=== PATIENT | male | born 1965 | race Caucasian/White ===

== ENCOUNTER 2020-08-17 14:34 | Outpatient (CLI) | payer BC, SELFPAY ==
--- NOTE | 2020-08-17 14:46 | XRR_ITS ---
PROCEDURE INFORMATION: Exam: XR Pelvis Exam date and time: 08/17/2020 3:05 PM Age: 55 years old Clinical indication: Injury or trauma; Fall; Blunt trauma (contusions or hematomas); Does not apply; Pelvic region; Injury date: Today; Injury details: Fell off 4 foot ladder; Additional info: Fall, pain TECHNIQUE: Imaging protocol: XR pelvis. Views: 1 or 2 view. COMPARISON: No relevant prior studies available. FINDINGS: Bones/joints: Unremarkable. No acute fracture. Soft tissues: Unremarkable. XR/XR pelvis 1-2V* [id number] IMPRESSION: No acute findings.
--- NOTE | 2020-08-17 14:46 | XRR_ITS ---
PROCEDURE INFORMATION: Exam: XR Lumbosacral Spine, 2 or 3 Views Exam date and time: 08/17/2020 3:03 PM Age: 55 years old Clinical indication: Injury or trauma; Fall; Blunt trauma (contusions or hematomas); Injury date: Today; Injury details: Fell off 4 foot ladder; Additional info: Fall, back abd hip pain TECHNIQUE: Imaging protocol: XR of the lumbosacral spine, 2 or 3 views. COMPARISON: CR XR pelvis 1-2V* [id number] 08/17/2020 2:51 PM FINDINGS: Bones/joints: There is mild spondylolisthesis L5-S1. Otherwise no additional acute fracture. There is retrolisthesis L4-L5. Soft tissues: Unremarkable. XR/XR lumbar spine 2-3V* [id number] IMPRESSION: 1. Mild spondylolisthesis L5-S1. 2. Retrolisthesis L4-L5. 3. Otherwise negative examination
== END 2020-08-17 14:35 | disposition home or self-care (01) ==
PROVIDERS: PCP Family Medicine; Visit Provider Emergency Medicine
DX: M54.9 Dorsalgia, unspecified (principal); W10.8XXA Fall (on) (from) other stairs and steps, initial encounter; R10.9 Unspecified abdominal pain; M25.559 Pain in unspecified hip; M43.17 Spondylolisthesis, lumbosacral region
CPT/HCPCS: 72100; 72170

== ENCOUNTER 2021-01-14 11:32 | Emergency (ER) | payer BC, SELFPAY ==
[2021-01-14 11:42] VITALS: BP 124/73; PULSE 76; RESP 15; O2SAT 97; BMI 28.9
[2021-01-14 14:03] VITALS: BP 140/102; PULSE 69; O2SAT 99
--- NOTE | 2021-01-14 14:07 | PC.NURSE ---
pt opted to take cat for rabies testing before deciding on rabies vaccination series.
--- NOTE | 2021-01-14 14:08 | ED_ITS ---
HPI - Animal Bite General: Chief Complaint: Animal Bite Stated Complaint: CAT BITE ON LEFT HAND AND WRIST Time Seen by Provider: 01/14/21 13:58 History of Present Illness: HPI narrative: Patient complains about redness swelling and pain to his left wrist that occurred a day and a half ago from a cat bite. Patient said is got red pretty fast. Patient said is a feral cat but he is able to catch it and it we will send it off to the vet in the morning. complaint: animal bite Onset (ago): day(s) Animal: cat Description of animal: household pet (Is a cat that they feet outside but is while) and appeared well Mechanism: bite Location - Extremities: Left: forearm Pain description: sharp Severity scale (1-10): 3 Context: unprovoked Associated symptoms: Reports wound drainage; Deny chills, fever(s) or headache(s) Review of Systems Const: Denies: fever(s), chills or body aches Eyes: Denies: change in vision or blurry vision ENMT: Denies: throat pain or nasal congestion Card: Denies: chest pain or dyspnea on exertion Resp: Denies: dyspnea, productive cough or non-productive cough GI: Denies: abdominal pain, nausea or vomiting : Denies: difficulty urinating Musc: Denies: extremity pain Skin/Breast: Reports: erythema, skin pain, skin tenderness and skin swelling; Denies: rash Neuro: Denies: headache(s) Psych: Denies: anxiety or depression Ajith/Lymph: Denies: easy bruising PFS ED PFSH: Social History (Updated 08/17/20 @ 13:56 by Vinay Daniels LPN) Smoking and tobacco status: current every day smoker smokeless tobacco Alcohol intake: never Physical Exam Const: COMMON NORMALS: no acute distress, average body habitus and patient oriented x3 HENMT: COMMON NORMALS: normocephalic HEAD & SCALP: normal to inspection and normocephalic FACE & SINUS: normal facial exam Eye: COMMON NORMALS: conjunctivae normal GENERAL EYE: appearance normal, both eyes and all related structures CONJUNCTIVA: Yes conjunctivae normal Neck/C-Spine: COMMON NORMALS: no JVD Chest: COMMONS NORMALS: normal inspection of the chest Resp: COMMON NORMALS: normal respiratory effort and clear to auscultation freda aterally AUSCULTATION: clear to auscultation bilaterally Cardio: COMMON NORMALS: no JVD, regular rate and regular rhythm RATE: regular rate RHYTHM: regular rhythm GI: COMMON NORMALS: Normal to inspection, nondistended, normoactive bowel sounds present Extremity: COMMON NORMALS: normal to inspection and full ROM Neuro: COMMON NORMALS: patient oriented x3 Skin: OTHER: Left wrist area with redness in the palm and then proximal about 4 inches down the forearm. No drainage noted at this point time bite antony noted on the dorsal and underside surface. Course Vital Signs: Vital signs: Vital Signs Pulse Rate 69 01/14/21 14:03 Respiratory Rate 15 01/14/21 11:42 Blood Pressure 140/102 01/14/21 14:03 Pulse Oximetry 99 01/14/21 14:03 MDM - Animal Bite MDM Narrative: Medical decision making narrative: Patient states he will be able to get a hold of the cat and take it to the vet to get set off state lab tomorrow the cat is still alive and comes to his house daily to get fed. Has not shown any signs of rabies. Discharge Plan Discharge Patient Disposition: Home Clinical Impression: Cat bite Qualifiers: Encounter type: initial encounter Qualified Code(s): W55.01XA - Bitten by cat, initial encounter Cellulitis Qualifiers: Site of cellulitis: extremity Site of cellulitis of extremity: upper extremity Laterality: left Qualified Code(s): L03.114 - Cellulitis of left upper limb Condition: Stable Prescriptions: New Augmentin 875-125 mg tablet 1 tab PO BID Qty: 20 RF: 0 No Action duloxetine [Cymbalta] 60 mg capsule,delayed release(DR/EC) 60 mg PO DAILY RF: 0 lisinopril 5 mg tablet 5 mg PO DAILY RF: 0 atorvastatin 10 mg tablet 10 mg PO DAILY RF: 0 metoprolol succinate 50 mg tablet extended release 24 hr 50 mg PO DAILY RF: 0 levothyroxine [Levo-T] 50 mcg tablet 50 mcg PO DAILY RF: 0 methocarbamol [Robaxin-750] 750 mg tablet 750 mg PO TID 6 Days Qty: 18 RF: 0 Discharge Orders: Discharge ED (Routine); Ordered 01/14/21 Ordered By: Rodríguez Tong Referrals: Christopher Ritter MD [Primary Care Provider] - Discharge Diet: Usual diet Discharge Activity: Resume usual activity Patient Instructions: Animal Bite (ED), Cellulitis (ED) Activity Restrictions/Additional Instructions: Follow-up with medical provider as directed. Take medications as prescribed. Return to the ER or your medical provider if condition worsens. Please read and understand discharge instructions. If any questions ask please. Catch the cat tonight take it to the vet tomorrow sling sent out for state lab for testing. Coding Level of Care Code ED Cord Cutter for Cammie Fwd Exam Comprehensive
[2021-01-14] MEDS: tetanus-dipt-pertussis 0.5 mL SDV IM (14:13)
[2021-01-14] MEDS: amoxicillin-clav 875-125 mg Tablet 1 TAB PO (14:13)
== END 2021-01-14 14:18 | disposition home or self-care (01) ==
PROVIDERS: Emergency Provider Nurse Practitioner Family; PCP Family Medicine
DX: S61.552A Open bite of left wrist, initial encounter (principal); L03.114 Cellulitis of left upper limb; W55.01XA Bitten by cat, initial encounter; F17.210 Nicotine dependence, cigarettes, uncomplicated; Z23 Encounter for immunization
CPT/HCPCS: 90471; 90715; 99283

== ENCOUNTER 2023-12-01 07:13 | Emergency (ER) | payer OTHER, SELFPAY ==
[2023-12-01 07:22] VITALS: BP 157/89; PULSE 64; RESP 18; TEMP 36.8; O2SAT 97; BMI 29.5
[2023-12-01 07:25] VITALS: BP 157/89; RESP 18; O2SAT 97
--- NOTE | 2023-12-01 07:26 | W.ED.HEATRA ---
HPI - Head Injury General: Chief complaint: Head Injury Stated complaint: hit head Time Seen by Provider: 12/01/23 07:20 History of Present Illness: 58-year-old male patient comes in today for complaints of head injury. Patient was working yesterday evening using a bar to break loose jackhammer from the concrete when it slipped striking him in the forehead. Patient denies loss of consciousness, persistent nausea vomiting, or persistent headache. 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 Patient reports mild headache. Patient appears nontoxic. Review of Systems General: Reports: 10 or more systems reviewed and unremarkable except in HPI and below Neuro: Reports: headache(s) PFSH ED PFSH: Social History Smoking and tobacco/nicotine status: current every day tobacco/nicotine user (chew) smokeless tobacco Alcohol intake: never Substance/Drug Use: never Physical Exam Const: COMMON NORMALS: alert HENMT: COMMON NORMALS: normocephalic HEAD & SCALP: normocephalic FACE & SINUS: ecchymosis (Left forehead) Neck/C-Spine: COMMON NORMALS: full ROM CERVICAL SPINE: No Cervical spine tenderness Chest: COMMONS NORMALS: normal inspection of the chest Resp: COMMON NORMALS: normal respiratory effort Cardio: COMMON NORMALS: regular rate RATE: regular rate Back/Pelvis: COMMON NORMALS: thoracic and lumbar spine normal to inspection Extremity: COMMON NORMALS: full ROM Neuro: SENSORIUM/ORIENTATION: Yes alert Psych: COMMON NORMALS: cooperative Skin: COMMON NORMALS: turgor normal GENERAL SKIN EXAM: turgor normal Course Vital Signs: Vital signs: Vital Signs Temperature 98.2 F 12/01/23 07:22 Pulse Rate 64 12/01/23 07:22 Respiratory Rate 18 12/01/23 07:25 Blood Pressure 157/89 12/01/23 07:25 Pulse Oximetry 97 12/01/23 07:25 Oxygen Delivery Me thod Room Air 12/01/23 07:25 MDM - Head Injury Medcial Decision Making Patient was referred from his employer for evaluation of head injury from yesterday. On exam patient appears nontoxic. Patient does have a contusion to the left forehead. Pupils are equal and reactive. Patient was all extremities well. No tenderness is noted in the cervical spine. Vital signs are normal except for some elevated blood pressure. Differential diagnosis includes skull fracture, intracranial bleeding, contusion. CT of the head noted no intracranial bleeding or skull fracture. Reviewed exam with patient with recommendations for treatment and follow-up. Patient reported understanding agreed to plan. Lab Data Radiology Impressions Head CT 12/01/23 07:29 IMPRESSION: 1. No acute intracranial pathology detected. 2. There is left frontal scalp soft tissue swelling/contusion. All radiology interpretation(s) finalized by discharge Discharge Plan Discharge Patient Disposition: Home Clinical Impression: Contusion of forehead Qualifiers: Encounter type: initial encounter Qualified Code(s): S00.83XA - Contusion of other part of head, initial encounter Condition: Stable Prescriptions: No Action levothyroxine [Synthroid] 50 mcg tablet 50 mcg PO QAM multivitamin Tablet 1 tab PO DAILY Fish Oil Concentrate 1,000 mg Capsule 1,000 mg PO DAILY garlic 500 mg Capsule 500 mg PO DAILY Vitamin C 500 mg Tablet 500 mg PO DAILY losartan 25 mg tablet 25 mg PO BID rosuvastatin 10 mg tablet 10 mg PO QAM duloxetine 30 mg capsule,delayed release(DR/EC) 30 mg PO QAM Prevagen 2 tab PO BID Discharge Orders: Discharge ED (Routine); Ordered 12/01/23 Ordered By: Charanjit Parker Referrals: Christopher Ritter MD [Primary Care Provider] - Discharge Diet: Usual diet Discharge Activity: Increase activity as tolerated Patient Instructions: Head Injury (ED) Activity Restrictions/Additional Instructions: Activity as tolerated. Use acetaminophen as needed for pain. Follow-up with primary care for further instructions. Return to ED for new concerns. Stand Alone Forms: Work/School Release Coding Level of Care Code ED [employer] Salesperson for Cammie Nicholson
--- NOTE | 2023-12-01 07:29 | CTR_ITS ---
PROCEDURE INFORMATION: Exam: CT Head Without Contrast Exam date and time: 12/01/2023 7:52 AM Age: 58 years old Clinical indication: Injury or trauma; Other: Hit on left eye brow with metal bar; Blunt trauma (contusions or hematomas); Additional info: Head injury TECHNIQUE: Imaging protocol: Computed tomography of the head without contrast. Total images: 1 Radiation optimization: All CT scans at this facility use at least one of these dose optimization techniques: automated exposure control; mA and/or kV adjustment per patient size (includes targeted exams where dose is matched to clinical indication); or iterative reconstruction. COMPARISON: No relevant prior studies available. RADIATION DOSE METRICS: Total DLP (mGy-cm): 1022.08 FINDINGS: Brain: Normal. No hemorrhage. Unremarkable white matter. No mass effect. Cerebral ventricles: No ventriculomegaly. Paranasal sinuses: Visualized sinuses are unremarkable. No fluid levels. Mastoid air cells: Visualized mastoid air cells are well aerated. Bones/joints: Unremarkable. No acute fracture. Soft tissues: There is left frontal scalp soft tissue swelling/contusion. Small lipoma along the left frontal scalp. CT/CT head wo con* [id number] IMPRESSION: 1. No acute intracranial pathology detected. 2. There is left frontal scalp soft tissue swelling/contusion.
--- NOTE | 2023-12-01 08:34 | PC.PHAR ---
pt states he takes care of his own medications-pt states he takes medications entered pt states he no longer takes metoprolol tartrate 50mg daily ext shows last filled 07/24/23 90d/s
[2023-12-01 08:54] VITALS: PULSE 59; O2SAT 99
== END 2023-12-01 08:55 | disposition home or self-care (01) ==
PROVIDERS: Emergency Provider Nurse Practitioner Family; PCP Family Medicine
DX: S00.83XA Contusion of other part of head, initial encounter (principal); F17.220 Nicotine dependence, chewing tobacco, uncomplicated; W29.8XXA Contact with other powered hand tools and household machinery, initial encounter; Y99.0 Civilian activity done for income or pay
CPT/HCPCS: 70450; 99284

== ENCOUNTER 2024-02-23 07:11 | Emergency (ER) | payer OTHER, SELFPAY ==
--- NOTE | 2024-02-23 07:25 | CT_ITS ---
WS: [id number] CT HEAD NONCONTRAST HISTORY: AMS/confusion TECHNIQUE: Contiguous axial imaging performed through the brain in 2.5 mm imaging. Bone and soft tiss ue windows. Sagittal and coronal reformats reviewed. All CT scans at [facility] use at least one of these dose optimization techniques: automated exposure control; mA and/or kV adjustment per pa tient size (includes targeted exams where dose is matched to clinical indication); or iterative recon struction. DLP: 1076.08 mGy.cm COMPARISON: 12/01/2023 No acute intracranial hemorrhage, midline shift or mass effect. Mild atrophy and mild low attenuation within the white matter particularly in the basal ganglia from small vessel disease. Similar to 12/01/2023. No obvious sulcal effacement. Ventricles: Normal size with no hydrocephalus. No inferior displacement of the cerebellar tonsils. Paranasal sinuses: Mild mucoperiosteal thickening RIGHT maxillary sinus and ethmoid air cells. No air -fluid levels. Mastoid air cells: Well pneumatized. Calvarium and scalp: Lipoma LEFT frontal scalp. Previously described frontal scalp contusion has reso lved. CT/CT head wo con* [id number] IMPRESSION: 1. No acute intracranial hemorrhage or edema. 2. Very mild atrophy with mild small vessel ischemic type changes.
--- NOTE | 2024-02-23 07:26 | XR_ITS ---
WS: [id number] Exam: XR chest 1V portable [id number] Date/Time of Exam: 02/23/2024 7:33 AM Reason For Exam: dyspnea/cough No priors. Findings: The lungs are clear and fully expanded. Costophrenic angles are sharp. No infiltrates. Bronchovascula r relief appears normal. Cardiac silhouette is unremarkable. Bony elements are intact. XR/XR chest 1V portable [id number] IMPRESSION: Unremarkable chest radiograph.
[2024-02-23 07:28] VITALS: BP 186/107; PULSE 60; RESP 18; TEMP 36.9; O2SAT 96; BMI 29.5
[2024-02-23 07:30] LABS: Glucose Point of Care 97 mg/dL (70-110)
--- NOTE | 2024-02-23 07:33 | ED_ITS ---
HPI - Altered Mental Status 2 General: Chief Complaint: Altered Mental Status Stated Complaint: confusion, disorientation, Time Seen by Provider: 02/23/24 07:25 Source: patient and family History of Present Illness: 58-year-old male presents emergency room with confusion and disorientation. Evidently patient went to work was disoriented kept punching and on his timecard repeated to the and was wandering around aimlessly. Report foci otherwise as Jaswant gave him a broom asked him to sweep up and is randomly against weeping areas around building. Patient states he feels offkilter but denies any chest pain or discomfort any headache any falls any abdominal pain no shortness of breath no fever sweats or chills no dysuria urgency or frequency no diarrhea or vomiting. Patient is not diabetic he does have a history of hypertension he states he took all of his medications this morning his cannot verify because she left home before he did. He has not previously had episodes like this no history of coronary artery disease or stroke. No history of any previous significant psychiatric diagnoses. MD complaint: altered mental status and confusion [facility] ED 2 PFSH: Social History Smoking and tobacco/nicotine status: current every day tobacco/nicotine user (chew) smokeless tobacco Alcohol intake: never Substance/Drug Use: never Course 2 Vital Signs: Vital signs: Vital Signs Temperature 98.4 F 02/23/24 07:28 Pulse Rate 60 02/23/24 10:36 Respiratory Rate 18 02/23/24 10:36 Blood Pressure 153/97 02/23/24 10:36 Pulse Oximetry 97 02/23/24 10:36 Oxygen Delivery Me thod Room Air 02/23/24 08:32 MDM - Altered Mental Status Medical Decision Making Patient is awake and alert behaving appropriately at the bedside she did not have anything more related add history other than recently there is been some stressful events in the last year he had not seemed anxious or otherwise abnormal. He is not ataxic he is not having nausea or vomiting. CT of his head was negative. Seems to head of transient fugue state which is resolved. He would prefer to go home. Will discharge patient home set him up for outpatient follow-up with neurology return if he has change in symptoms or recurrence of symptoms Medical Records I reviewed the patient's medical records. Lab Data I reviewed the patient's lab results. 02/23/24 07:29 02/23/24 07:[address] 02/23/24 07:25 IMPRESSION: 1. No acute intracranial hemorrhage or edema. 2. Very mild atrophy with mild small vessel ischemic type changes. Chest X-Ray 02/23/24 07:26 IMPRESSION: Unremarkable chest radiograph. Laboratory Results WBC 5.59 10^3/uL (3.29-11.43) 02/23/24 07:29 RBC 4.62 10^6/uL (3.85-5.65) 02/23/24 07:29 Hgb 13.70 g/dL (11.27-16.99) 02/23/24 07:29 Hct 42.7 % (37-53) 02/23/24 07: MCV 92.4 fl (82-101) 02/23/24 07:29 MCH 29.7 pg (27-33) 02/23/24 07: MCHC 32.1 g/dL (30-55) 02/23/24 07:29 RDW 12.8 % (12.1-15.1) 02/23/24 07:29 Plt Count 232 10^3/cmm (157-399) 02/23/24 07: MPV 10.0 fL (7.4-10.4) 02/23/24 07:29 Neut % (Auto) 54.7 % 02/23/24 07:29 Lymph % (Auto) 31.1 % 02/23/24 07:29 [place] % (Auto) 10.4 % 02/23/24 07:29 Eos % (Auto) 2.7 % 02/23/24 07:29 Baso % (Auto) 0.7 % 02/23/24 07:29 Neut # (Auto) 3.06 10^3/uL (1.8-7.7) 02/23/24 07:29 Lymph # (Auto) 1.7 10^3/uL (0.8-4.8) 02/23/24 07:29 [place] # (Auto) 0.6 10^3/uL (0.2-0.9) 02/23/24 07:29 Eos # (Auto) 0.2 10^3/uL (0.0-0.8) 02/23/24 07:29 Baso # (Auto) 0.0 10^3/uL (0.0-0.1) 02/23/24 07:29 Nucleated RBC % (auto) 0 % 02/23/24 07: Nucleated RBCs # 0.0 /100WBC 02/23/24 07:29 Sodium 142 mmol/L (136-145) 02/23/24 07:29 Potassium 3.8 mmol/L (3.5-5.1) 02/23/24 07:29 Chloride 103 mmol/L (98-107) 02/23/24 07:29 Carbon Dioxide 28 mmol/L (22-29) 02/23/24 07:29 Anion Gap 14.8 (5-19) 02/23/24 07:29 BUN 14 mg/dL (8-23) 02/23/24 07:29 Creatinine 0.9 mg/dL (0.7-1.2) 02/23/24 07:29 GFR Calculation 86.1 mL/min (90-130) L 02/23/24 07:29 Glucose 96 mg/dL (65-115) 02/23/24 07:29 POC Glucose 97 mg/dL (70-110) 02/23/24 07:27 Calculated Osmolality 294 mOsm/kg (285-295) 02/23/24 07:29 Lactic Acid 1.5 mmol/L (0.5-2.2) 02/23/24 07:29 Calcium 9.5 mg/dL (8.5-10.5) 02/23/24 07: Magnesium 2.0 mg/dL (1.7-2.3) 02/23/24 07:29 Total Bilirubin 0.4 mg/dL (0.15-1.2) 02/23/24 07:29 AST 20 U/L (0-40) 02/23/24 07:29 ALT 24 U/L (0-41) 02/23/24 07:29 Alkaline Phosphatase 93 U/L (40-130) 02/23/24 07:29 Creatine Kinase 213 U/L (39-308) 02/23/24 07:29 Total Protein 7.3 g/dL (6.6-8.7) 02/23/24 07:29 Albumin 4.4 g/dL (3.5-5.2) 02/23/24 07:29 Globulin 2.9 g/dL (1.3-4.6) 02/23/24 07:29 TSH 2.35 uIU/mL (0.27-4.20) 02/23/24 07:29 Urine Color Yellow (Yellow) 02/23/24 07:47 Urine Appearance Clear (CLEAR) 02/23/24 07:47 Urine pH 7 (5-7) 02/23/24 07:47 Ur Specific [place] 1.015 (1.005-1.030) 02/23/24 07:47 Urine Protein Neg (Negative) 02/23/24 07:47 Urine Glucose (UA) Norm (Normal) 02/23/24 07:47 Urine Ketones Negative (Negative) 02/23/24 07:47 Urine Blood Neg (Negative) 02/23/24 07:47 Urine Nitrate Negative (Negative) 02/23/24 07:47 Urine Bilirubin Neg (Negative) 02/23/24 07:47 Urine Urobilinogen Norm mg/dL (Negative) 02/23/24 07:47 Ur Leukocyte Esterase Negative (Negative) 02/23/24 07:47 Urine Opiates Screen Negative ng/mL (Negative) 02/23/24 07:47 Ur Barbiturates Screen Negative ng/mL (Negative) 02/23/24 07:47 Ur Phencyclidine Scrn Negative ng/mL (Negative) 02/23/24 07:47 Ur Amphetamines Screen Negative ng/mL (Negative) 02/23/24 07:47 U Benzodiazepines Scrn Negative ng/mL (Negative) 02/23/24 07:47 Urine Cocaine Screen Negative ng/mL (Negative) 02/23/24 07:47 U Marijuana (THC) Screen Negative ng/mL (Negative) 02/23/24 07:47 All radiology interpretation(s) finalized by discharge Discharge Plan Discharge Patient Disposition: Home Clinical Impression: Dissociative fugue Condition: Stable Prescriptions: No Action levothyroxine [Synthroid] 50 mcg tablet 50 mcg PO QAM multivitamin Tablet 1 tab PO DAILY omega-3 fatty acids [Fish Oil Concentrate] 1,000 mg Capsule 1,000 mg PO DAILY garlic 500 mg Capsule 500 mg PO DAILY ascorbic acid (vitamin C) [Vitamin C] 500 mg Tablet 500 mg PO DAILY losartan 25 mg tablet 25 mg PO BID rosuvastatin 10 mg tablet 10 mg PO QAM duloxetine 30 mg capsule,delayed release(DR/EC) 30 mg PO QAM Prevagen 2 tab PO BID Discharge Orders: Discharge ED (Routine); Ordered 02/23/24 Ordered By: Blaise Craft Referrals: Christopher Ritter MD [Primary Care Provider] - Discharge Diet: Usual diet Discharge Activity: Resume usual activity Patient Instructions: Altered Mental Status (ED), Opioid Safety, Pain Management Activity Restrictions/Additional Instructions: Thank you for choosing [facility] for your healthcare needs today. It is very important that you follow up as instructed or that you return to the Emergency Department should you have concerns or if your condition changes or worsens in any way. You were seen in the emergency room today for a brief episode of altered mental status. Your exam was negative for stroke CT of your head was negative your laboratory test did not show significant abnormality. Will set you up to follow-up with neurology as an outpatient. If you have any other symptoms return to the emergency room. Coding Level of Care Code ED Web Analytics Developer for Cammie Nicholson
[2024-02-23 07:53] LABS: Basophils % 0.7 %; Eosinophils # 0.2 10^3/uL (0.0-0.8); Eosinophils % 2.7 %; Hematocrit 42.7 % (37-53); Lymphocytes # 1.7 10^3/uL (0.8-4.8); Lymphocytes % 31.1 %; Mean Corpuscular HGB Conc 32.1 g/dL (30-55); Mean Corpuscular Hemoglobin 29.7 pg (27-33); Mean Corpuscular Volume 92.4 fl (82-101); Monocytes # 0.6 10^3/uL (0.2-0.9); Monocytes % 10.4 %; Neutrophils # 3.06 10^3/uL (1.8-7.7); Neutrophils % 54.7 %; Nucleated Red Blood Cells % 0 %; Platelet Count 232 10^3/cmm (157-399); Red Blood Count 4.62 10^6/uL (3.85-5.65); Red Cell Distribution Width 12.8 % (12.1-15.1); White Blood Count 5.59 10^3/uL (3.29-11.43)
[2024-02-23 08:06] LABS: Add Urine Microscopic? NO; Charge for UA Resulting for Rev
[2024-02-23 08:07] LABS: Bilirubin Urine Neg (Negative); Blood Urine Neg (Negative); Glucose Urine UA Norm (Normal); Ketones Urine Negative (Negative); Leukocyte Esterase Urine Negative (Negative); Nitrate Urine Negative (Negative); Protein Urine Neg (Negative); Specific Gravity, Urine 1.015 (1.005-1.030); Urine Appearance Clear (CLEAR); Urine Color Yellow (Yellow); Urobilinogen Urine Norm (Negative); pH Urine 7 (5-7)
[2024-02-23 08:10] LABS: Lactic Sepsis W/Reflex 1.5 mmol/L (0.5-2.2)
[2024-02-23 08:14] LABS: Amphetamines Screen Urine Negative (Negative); Barbiturates Screen Urine Negative (Negative); Benzodiazepines Screen Urine Negative (Negative); Cocaine Screen Urine Negative (Negative); Opiate Screen Urine Negative (Negative); PCP Screen Urine Negative (Negative); THC Screen Urine Negative (Negative)
[2024-02-23 08:17] LABS: Alanine Aminotransferase 24 U/L (0-41); Albumin Level 4.4 g/dL (3.5-5.2); Alkaline Phosphatase 93 U/L (40-130); Anion Gap 14.8 (5-19); Aspartate Amino Transferase 20 U/L (0-40); Blood Urea Nitrogen 14 mg/dL (8-23); Calcium 9.5 mg/dL (8.5-10.5); Carbon Dioxide 28 mmol/L (22-29); Chloride 103 mmol/L (98-107); Creatine Phosphokinase 213 U/L (39-308); Creatinine Clr Calc Pharmacy 97.1694; Globulin 2.9 g/dL (1.3-4.6); Glomerular Filtration Rate 86.1 mL/min (90-130); Glucose 96 mg/dL (65-115); Osmolality Calculated 294 mOsm/kg (285-295); Potassium 3.8 mmol/L (3.5-5.1); Sodium 142 mmol/L (136-145); Thyroid Stimulating Hormone 2.35 uIU/mL (0.27-4.20); Total Bilirubin 0.4 mg/dL (0.15-1.2); Total Protein 7.3 g/dL (6.6-8.7)
[2024-02-23 08:32] VITALS: BP 153/88; PULSE 56; RESP 17; O2SAT 97
[2024-02-23 09:36] VITALS: BP 156/83; PULSE 67; O2SAT 97
[2024-02-23 10:22] VITALS: PULSE 55; RESP 22; O2SAT 96
--- NOTE | 2024-02-23 10:24 | ECG_ITS ---
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 Measurements Intervals [place] Rate: 54 P: 50 VT: 195 QRS: -1 QRSD: 98 T: 40 QT: 410 QTc: 389 Interpretive Statements SINUS BRADYCARDIA No previous ECG available for comparison Electronically Signed On 02-23-2024 20:39:12 CDT by Angela Wei M.D. [id number] f"
[2024-02-23 10:36] VITALS: BP 153/97; PULSE 60; RESP 18; O2SAT 97
--- NOTE | 2024-02-23 13:43 | DCPLANNER ---
message sent to neuro for er f/u
== END 2024-02-23 10:37 | disposition home or self-care (01) ==
PROVIDERS: Emergency Provider Family Medicine; PCP Family Medicine
DX: F44.1 Dissociative fugue (principal); F17.220 Nicotine dependence, chewing tobacco, uncomplicated
CPT/HCPCS: 36415; 36416; 70450; 71045; 80053; 80306; 81003; 82550; 82962; 83605; 83735; 84443; 85025; 87040; 93005; 99285

== ENCOUNTER 2024-04-10 15:08 | Outpatient (CLI) | payer OTHER, SELFPAY ==
--- NOTE | 2024-04-10 15:14 | MR_ITS ---
WS: [id number] MRI BRAIN WITH AND WITHOUT CONTRAST HISTORY: AMNESIA COMPARISON: CT 02/23/2024 TECHNIQUE: Multiplanar imaging performed through the brain with MultiHance 20 ml's IV. No acute infarcts are seen. Alaniz-white matter differentiation is well preserved. Mild cerebral atroph y with very minimal small vessel ischemic type changes. No prior infarct. No susceptibility artifacts or prior lacunar infarcts. Normal hippocampal formations. Ventricles and extra-axial spaces are normal. Clivus and pituitary gland are normal. Visualized posterior fossa and brainstem are also normal. Postcontrast images are negative for masses or vascular malformations. Dural venous sinuses are normal. Paranasal sinuses: Moderate mucoperiosteal thickening in the RIGHT maxillary sinus. No air-fluid leve ls. Remaining sinuses are negative. Mastoid air cells: Normal. Calvarium and scalp: No skull fracture. Identified on the recent postprocedural changes in the LEFT f rontal scalp from a soft tissue mass removal. There is mild enhancement at the post procedure cavity site as expected. No additional calvarial mass. MR/MR head wo/w con [id number] IMPRESSION: 1. No acute infarct. No diffusion abnormalities. 2. Normal hippocampal formations. 3. Very minimal cerebral atrophy and small vessel ischemic changes. No prior i nfarct. 4. Moderate mucoperiosteal thickening RIGHT maxillary sinus. 5. Recent post procedure signal changes LEFT frontal scalp from lipoma removal .
[2024-04-10] MEDS: gadobenate dimeglumine 20 mL vial IV (15:16)
== END 2024-04-10 15:09 | disposition home or self-care (01) ==
LOC: RAD 15:09
PROVIDERS: PCP Family Medicine; Visit Provider Family Medicine
DX: J34.1 Cyst and mucocele of nose and nasal sinus (principal); Z98.890 Other specified postprocedural states; R41.3 Other amnesia
CPT/HCPCS: 70553; A9577

== ENCOUNTER → 2024-04-23 10:47 | Outpatient (BNVA) | payer OTHER, SELFPAY | PROVIDERS: PCP Family Medicine; Visit Provider Psychiatry & Neurology Neurology | DX: R55 Syncope and collapse (principal); R41.3 Other amnesia | CPT/HCPCS: 36415; 82306; 82607; 82746; 83090; 83921 ==

== ENCOUNTER 2024-06-03 12:31 | Outpatient (CLI) | payer OTHER, SELFPAY ==
--- NOTE | 2024-06-03 12:45 | USCV_ITS ---
Trace Martínez Age: 58 Gender: M : 1965 Exam Date: 06/03/2024 13:07 Ordering Phys: Ludin Melendez MD Technologist: CT Exam Location: [facility] – [place]_ Indication: BP: 145 / 79 HR: 57 Rhythm: Sinus Technical Quality: Adequate MEASUREMENTS (Male / Female) Normal Values 2D ECHO LVOT Diameter 2.3 cm LV Ejection Fraction MOD 4C 67.5 % LV Ejection Fraction MOD 2C 59.3 % LV Ejection Fraction 2C AL 58.9 % LA Diameter 2.8 cm RA Systolic Volume 4C AL 33.9 ml RA Systolic Volume 4C MOD 33.5 ml LA Sys Volume AL 42.6 cm cubed LA Sys Volume Index AL 19.9 cm cubed/m squared Aorta at Sinotubular Diameter 2.9 cm IVC Diameter 2.2 cm M-MODE LA Ao Ratio MM 1.0 AV Cusp Separation MM 2.5 cm DOPPLER AV Peak Velocity 124.0 cm/s LVOT Peak Velocity 93.0 cm/s AV Area Cont Eq vti 3.9 cm squared AV Area Cont Eq pk 3.0 cm squared MV Peak Velocity 83.0 cm/s MV Area PHT 3.0 cm squared Mitral E to A Ratio 1.1 TR Peak Velocity 255.0 cm/s TR Peak Gradient 26.0 mmHg TV Peak E Velocity 72.0 cm/s Right Atrial Pressure 3.0 mmHg Pulmonary Artery Systolic Pressu 29.0 mmHg PV Peak Velocity 111.5 cm/s FINDINGS Left Ventricle Normal left ventricular size, systolic function and wall thickness, with no regional wall motion abnormalities. Left ventricular ejection fraction is estimated at 60 %. Grade I/IV diastolic dysfunction (abnormal relaxation filling pattern), normal to mildly elevated filling pressures. Right Ventricle The right ventricle is normal in size and function. Right Atrium The right atrium is normal in size. Left Atrium The left atrium is normal in size. Mitral Valve Structurally normal mitral valve without significant stenosis or prolapse. There is no mitral regurgitation. Aortic Valve Structurally normal aortic valve without significant sclerosis or stenosis. There is no aortic regurgitation. Tricuspid Valve Structurally normal tricuspid valve without significant stenosis or regurgitation. Pulmonary artery systolic pressure is normal. Pulmonic Valve Structurally normal pulmonic valve without significant stenosis. There is no pulmonic regurgitation. Pericardium Normal pericardium without effusion. Aorta Normal ascending aorta dimension. IVC The inferior vena cava appears normal. CONCLUSIONS Normal left ventricular size, systolic function and wall thickness, with no regional wall motion abnormalities. Left ventricular ejection fraction is estimated at 60 %. Grade I/IV diastolic dysfunction (abnormal relaxation filling pattern), normal to mildly elevated filling pressures. No significant valve abnormalities. There is no pericardial effusion. Pulmonary artery systolic pressure is within normal limits. Right atrial pressure is around 5 mm of mercury. Amarilis Campos MD (Electronically Signed) Final Date: 04 June 2024 12:23 S
== END 2024-06-03 12:32 | disposition home or self-care (01) ==
PROVIDERS: PCP Family Medicine; Visit Provider Psychiatry & Neurology Neurology
DX: I25.10 Atherosclerotic heart disease of native coronary artery without angina pectoris (principal); I50.30 Unspecified diastolic (congestive) heart failure
CPT/HCPCS: 93306

== ENCOUNTER 2024-06-04 12:47 | Outpatient (CLI) | payer OTHER, SELFPAY ==
--- NOTE | 2024-06-04 13:00 | MR_ITS ---
WS: [id number] MRA ANGIOGRAPHY [place] HISTORY: R55 - Syncope and collapse COMPARISON: None available. TECHNIQUE: 3-D MR angiography is performed of the [place]. All images are reviewed including source images. Dominant distal LEFT vertebral artery. Both vertebral arteries are patent. Basilar artery is normal p osterior cerebral arteries are normal. LEFT posterior cerebral artery slightly smaller caliber than t he RIGHT but it is patent.. Intracranial portion of the internal carotid arteries are normal course and caliber. No significant a therosclerosis, stenosis or aneurysm identified. Middle and anterior cerebral arteries are both paten t with no significant disease. Smaller caliber distal LEFT MCA beginning at the level of the distal M 1 segment. No thrombus. No occlusions. Anterior communicating artery is also normal. MR/MR angio head wo con [id number] IMPRESSION: 1. No [place] aneurysm or occlusion. 2. Smaller caliber distal LEFT MCA but no thrombus or occlusion. This may be c ongenital. 3. Dominant distal LEFT vertebral artery.
--- NOTE | 2024-06-04 13:15 | MR_ITS ---
WS: [id number] MRA CAROTID ARTERIES HISTORY: R55 - Syncope and collapse COMPARISON: None available. TECHNIQUE: MRA is performed with intravenous gadolinium. MIP and source images are reviewed. Right: RIGHT common, internal and external carotid arteries are widely patent. No significant atheros clerosis or stenosis. Left: LEFT common, internal and external carotid arteries are widely patent. No significant atheroscl erosis or stenosis. Subclavian Arteries: Normal. Vertebral Arteries: No stenosis. Distal vertebral arteries are small in caliber, RIGHT greater than L EFT but patent. MR/MR angio neck w con* [id number] IMPRESSION: No significant carotid artery stenosis.
[2024-06-04] MEDS: gadobenate dimeglumine 20 mL vial IV (13:39)
== END 2024-06-04 12:48 | disposition home or self-care (01) ==
LOC: RAD 12:49
PROVIDERS: PCP Family Medicine; Visit Provider Psychiatry & Neurology Neurology
DX: R55 Syncope and collapse (principal); R41.3 Other amnesia
CPT/HCPCS: 70544; 70548